=== PATIENT | female | born 1980 | race Caucasian/White ===

== ENCOUNTER 2017-02-27 08:38 | Emergency (ER) | payer MEDICAID, OTHER ==
[~2017-02-27] VITALS: Ht 157.5 cm; Wt 62.2 kg
[~2017-02-27 08:38] MED LIST: no meds
[2017-02-27 08:41] VITALS: Ht 157.5 cm; Wt 62.2 kg
[2017-02-27] MEDS ORDERED: ONDANSETRON (ODT) 4 MG TAB ODT STA (09:22)
[2017-02-27] MEDS ORDERED: HYDROCODONE/APAP (5/325) TAB PO ONE (09:30)
[2017-02-27] MEDS ORDERED: LIDOCAINE/MYLANTA 40 ML BTL PO ONE (09:30)
[2017-02-27 10:20] LABS: ADD UMIC NO; UR ASCORBIC ACID NEGATIVE (NEGATIVE); UR BILIRUBIN (Dip) NEGATIVE (NEGATIVE); UR BLOOD (Dip) NEGATIVE (NEGATIVE); UR CLARITY CLEAR (CLEAR); UR COLOR STRAW (YELLOW); UR GLUCOSE (Dip) NEGATIVE (NEGATIVE); UR KETONES (Dip) NEGATIVE (NEGATIVE); UR LEUKOCYTE ESTERASE (Dip) NEGATIVE Leu/ul (NEGATIVE); UR NITRITE (Dip) NEGATIVE (NEGATIVE); UR TOTAL PROTEIN (Dip) NEGATIVE (NEGATIVE); UR UROBILINOGEN (Dip) NEGATIVE (NEGATIVE)
[2017-02-27] MEDS ORDERED: ONDA4TAB8 PO (10:51)
[2017-02-27] MEDS ORDERED: ELEC100080 PO (10:52)
[2017-02-27] MEDS ORDERED: OMEP20CA16 PO (10:52)
[2017-02-27] MEDS ORDERED: ACET500C5 PO (10:53)
--- NOTE | 2017-02-27 11:00 | ERD ---
ER Documentation Chief Complaint Chief Complaint epigastric pain and dizziness since last night HPI This is a 36-year-old female who presents the emergency department today complaining of vomiting, diarrhea and abdominal pain that started last night. States she also has a headache. States she has not taken any medication for the pain. Denies any fevers or chills. ROS All systems reviewed and are negative except as per history of present illness. Medications Home Meds Active Scripts Acetaminophen* (Tylophen*) 500 Mg Capsule, 1 CAP PO Q6H Y for PAIN AND OR ELEVATED TEMP, #30 CAP Prov:RADHA SANCHES PA-C 02/27/17 Electrolyte,Oral (Pedialyte) 1,000 Ml Solution, 100 ML PO Q6 Y for VOMITTING, # 1000 ML Prov:RADHA SANCHES PA-C 02/27/17 Omeprazole* (Omeprazole*) 20 Mg Capsule.dr, 20 MG PO BID, #20 Prov:RADHA SANCHES PA-C 02/27/17 Ondansetron Hcl* (Zofran*) 4 Mg Tablet, 4 MG PO Q6H for NAUSEA AND/OR VOMITING, #30 TAB Prov:RADHA SANCHES PA-C 02/27/17 Reported Medications [no meds] No Conflict Check 05/14/12 Allergies Allergies: Coded Allergies: No Known Allergy (Unverified , 02/27/17) PMhx/Soc Medical and Surgical Hx: pt denies Medical Hx History of Surgery: Yes (csx1) Anesthesia Reaction: No Hx Neurological Disorder: No Hx Respiratory Disorders: No Hx Cardiac Disorders: No Hx Psychiatric Problems: No Hx Miscellaneous Medical Probl: No Hx Alcohol Use: Yes (ocassionally) Hx Substance Use: No Hx Tobacco Use: No Smoking Status: Never smoker Physical Exam Vitals Vital Signs Date Time Temp Pulse Resp B/P Pulse Ox O2 Delivery O2 Flow Rate FiO2 02/27/17 08:41 97.9 88 20 111/62 99 Physical Exam Const: NAD Head: Atraumatic Eyes: Normal Conjunctiva. PERRLA, EOM intact ENT: Normal External Ears, Nose and Mouth. Neck: Full range of motion..~ No meningismus. Resp: Clear to auscultation bilaterally Cardio: Regular rate and rhythm, no murmurs Abd: Soft, epigastric tenderness,non distended. Normal bowel sounds. NO lower abdominal pain. Skin: No petechiae or rashes Back: No midline or flank tenderness Ext: No cyanosis, or edema Neur: Awake and alert. Cranial nerves II through XII intact. No gait ataxia. Psych: Normal Mood and Affect Results 24 hrs Laboratory Tests Test 02/27/17 10:05 Urine Color STRAW Urine Clarity CLEAR Urine pH 5.0 Urine Specific [place] 1.010 Urine Ketones NEGATIVEmg/dL Urine Nitrite NEGATIVEmg/dL Urine Bilirubin NEGATIVEmg/dL Urine Urobilinogen NEGATIVEmg/dL Urine Leukocyte Esterase NEGATIVELeu/ul Urine Hemoglobin NEGATIVEmg/dL Urine Glucose NEGATIVEmg/dL Urine Total Protein NEGATIVEmg/dl Current Medications Medications (Trade) Dose Ordered Sig/Melchor Route PRN Reason Start Time Stop Time Status Last Admin Dose Admin Miscellaneous Medication (Gi Cocktail (2)) 40 ml ONCE ONCE PO 02/27/17 09:30 02/27/17 09:31 DC 02/27/17 09:35 Ondansetron HCl (Zofran Odt) 4 mg ONCE STAT ODT 02/27/17 09:22 02/27/17 09:24 DC 02/27/17 09:35 Acetaminophen/ Hydrocodone Bitart ([place] (5/325)) 1 tab ONCE ONCE PO 02/27/17 09:30 02/27/17 09:31 DC 02/27/17 09:34 Procedures/MDM This a 36-year-old female who presented to the emergency department today with multiple complaints. Patient is complaining of diarrhea and abdominal pain that "dickerson", headache. Patient has no focal neurologic deficits and no gait ataxia and I do not feel that she requires a head CT scan at this time. Low suspicion for acute hemorrhage, mass, abscess, meningitis. Patient is afebrile and otherwise well-appearing. On physical exam she had epigastric pain but no pain in any of her other quadrants. Do not feel that she requires further laboratory workup or imaging. Low suspicion for acute cholecystitis, acute appendicitis or acute surgical abdomen. I did obtain a UA and urine test UA is negative for infection test is negative Patient had epigastric pain on physical exam and therefore was given Zofran and a GI cocktail as well as [place] for her headache. Patient reported significant improvement in all of her symptoms reported feeling good enough to go home. Patient symptoms at this time is consistent with epigastric pain, likely gastritis, vomiting and diarrhea likely viral and headache. At this time the patient is stable for discharge and outpatient management. Patient should follow up with their PCP in the next 1-2 days. They may return to the emergency department sooner for any persistent or worsening of symptoms. Patient understood and agreed with the plan. Departure Diagnosis: Primary Impression: Multiple complaints Condition: Fair Patient Instructions: Self-Care for Vomiting and Diarrhea, Epigastric Pain ( Uncertain Cause) [facility] Usted se cervantes hecho un examen mdico de control que le indica que no est en joss condicin que requiera tratamiento urgente en el Departamento de Emergencia. Un estudio ms profundo y el tratamiento de martinez condicin pueden esperar sin ningn riesgo hasta que usted sea atendida/o en el consultorio de martinez mdico o joss cl jose. Es responsabilidad suya arreglar joss russ para el seguimiento del kitty. MANEJO DE CONDICIONES NO URGENTES EN EL FUTURO 1) Si usted tiene un mdico de atencin primaria: Usted debera llamar a martinez mdico de atencin primaria antes de venir al departamento de emergencia. Despus de las horas de consultorio, martinez doctor o martinez asociado/a est disponible por telfono. El mdico o enfermero de isis en el servicio telefnico puede asesorarle por maikel medio para atender el problema, o kitty contrario se puede programar joss russ. 2) Si usted no tiene un mdico de atencin primaria: Llame al mdico o clnica de referencia que aparece abajo rochelle las horas de consultorio para hacer joss russ para que le vean. CLINICAS: [facility] [phone] [address] [facility] [phone] [id number] [facility] 802 [phone] [address] [facility] [phone] [place] [id number] [phone] [facility]. [phone] [address] Additional Instructions: Llame al doctor MAANA y gianni joss RUSS PARA DENTRO DE 1-2 PATEL.Dgale a la secretaria que nosotros le instruimos hacer esta russ.Avise o llame si martinez condicin se empeora antes de la russ. Regresa aqui si peor o no mejor. Take tylenol if you have any pain. Take Pedialyte for vomiting and diarrhea and stay well-hydrated with plenty of clear fluids. Take Zofran for nausea or vomiting. Take omeprazole as prescribed. RADHA SANCHES PA-C Feb 27, 2017 11:00
[2017-02-27 11:01] VITALS: BP 110/62; PULSE 65; RESP 18; TEMP 97.9
== END 2017-02-27 11:02 | disposition home or self-care (01) ==
LOC: FTE 08:38
DX: R10.13 Epigastric pain (principal); R42 Dizziness and giddiness; R11.10 Vomiting, unspecified; R19.7 Diarrhea, unspecified; R51 Headache
CPT/HCPCS: 81003; Z7502; Z7610; 99283

== ENCOUNTER 2018-02-20 08:34 | Emergency (ER) | END 2018-02-20 10:43 | disposition home or self-care (01) ==